=== PATIENT | female | born 1985 | race Caucasian/White ===

== ENCOUNTER → 2018-03-04 | Outpatient (CLI) | payer OTHER ==
[~2018-03-04] MED LIST: BIRTH CONTROL1 EAC1 PO; CATAFLAM50 MG PO; CELEXA20 MG PO; DAYPRO600 M1 PO; NORCO 325 MG-51 TAB PO; ROBAXIN750 MG PO; TRAMADOL HCL50 MG PO; VICODIN 500 MG-1 TAB PO; ZOFRAN4 MG PO
== END | disposition home or self-care (01) ==
LOC: US 16:46
DX: M79.89 Other specified soft tissue disorders (principal)

== ENCOUNTER → 2018-03-25 | Outpatient (CLI) | payer OTHER | END | disposition home or self-care (01) | LOC: CT 09:00 | DX: R91.1 Solitary pulmonary nodule (principal); M79.621 Pain in right upper arm ==

== ENCOUNTER → 2020-06-26 | Day surgery (SDC) | payer OTHER ==
[~2020-06-26] VITALS: Ht 165.1 cm; Wt 77.1 kg
[2020-06-26] VITALS (8 sets, daily range): BP systolic 90–108; BP diastolic 43–65
[~2020-06-26] MED LIST changes: +ADDERALL XR30 MG PO; +COLACE100 MG PO; +PERCOCET 5-3251 EACH PO; +ZYRTEC10 M3 PO
[2020-06-26 09:52] LABS: BASO % 0.3 % (0.0-1.0); EOS # 0.1 10*3/uL (0.0-0.4); EOS % 1.1 % (1.0-4.0); HEMATOCRIT 38.2 % (37.0-47.0); LYMPH # 2.8 10*3/uL (1.3-4.4); LYMPH % 44.6 % (27.0-41.0); MEAN CELL VOLUME 91.6 fl (81.0-99.0); MEAN CORPUSCULAR HGB 30.9 pg (27.0-31.0); MEAN CORPUSCULAR HGB CONC 33.8 g/dl (33.0-37.0); MEAN PLATELET VOLUME 9.5 fl (9.6-12.3); MONO # 0.3 10*3/uL (0.1-1.0); NEUT # 3.1 10*3/uL (2.3-7.9); PLATELET COUNT AUTOMATED 263 10*3/uL (130-400); RED BLOOD COUNT 4.17 10*6/uL (4.10-5.10); RED CELL DISTRI WIDTH 11.1 % (0-14.5); WHITE BLOOD COUNT 6.2 10*3/uL (4.8-10.8)
[2020-06-26 10:06] LABS: ALBUMIN 3.6 gm/dl (3.1-4.5); ALKALINE PHOSPHATASE 57 U/L (45-117); BUN 20 mg/dl (7-24); CHLORIDE 105 mmol/L (98-107); LIPASE 66 U/L (73-393); POTASSIUM 3.8 mmol/L (3.5-5.1); SGOT/AST 9 IU/L (3-35); SGPT/ALT 21 U/L (12-78); SODIUM 136 mmol/L (136-145); TOTAL PROTEIN 7.8 gm/dL (6.4-8.2)
[2020-06-26 10:10] LABS: BETA-HCG, QUANT < 1.0 mIU/mL (1-3)
== END | disposition home or self-care (01) ==
LOC: ED 09:20 → SDC 12:55
PROVIDERS: Emergency Medicine; ATTEND Surgery
DX: K35.80 Unspecified acute appendicitis (principal); N83.202 Unspecified ovarian cyst, left side; Z90.49 Acquired absence of other specified parts of digestive tract; Z79.899 Other long term (current) drug therapy

== ENCOUNTER → 2020-10-10 | Outpatient (CLI) | payer OTHER | END | disposition home or self-care (01) | LOC: CARD 11:54 | PROVIDERS: ATTEND Family Medicine | DX: R00.2 Palpitations (principal); I49.9 Cardiac arrhythmia, unspecified ==